=== PATIENT | female | born 2000 | race Caucasian/White ===

== ENCOUNTER 2021-05-05 17:44 | Emergency (ER) | payer BC ==
[2021-05-05] MEDS ORDERED: methylPREDNISolone Sod Succ/PF 125 MG/2 ML VIAL ONE (19:00)
[2021-05-05] MEDS ORDERED: Acetaminophen 500 MG TAB ONE (19:01)
[2021-05-05] MEDS ORDERED: Metoclopramide HCl 10 MG/2 ML VIAL ONE (19:01)
[2021-05-05] MEDS ORDERED: diphenhydrAMINE 50 MG/ML VIAL ONE (19:01)
[2021-05-05] MEDS ORDERED: Magnesium 2 GM/50 ML BAG (IN WATER) ONE (19:01)
== END 2021-05-05 20:11 | disposition home or self-care (01) ==
LOC: CSHERS 17:44
DX: G43.909 Migraine, unspecified, not intractable, without status migrainosus (principal); E03.9 Hypothyroidism, unspecified
CPT/HCPCS: 96365; 96375; J1200; J2765; J2930; J3475